=== PATIENT | male | born 1995 | race Caucasian/White ===

== ENCOUNTER 2022-04-07 19:42 | Emergency (ER) | payer OTHER ==
[2022-04-07] MEDS ORDERED: Lidocaine 1% MPF 2 ML VIAL ONE (21:11)
[2022-04-07] MEDS ORDERED: Boostrix 0.5 ML (Tdap) VIAL (>/=7 yrs of age) ONE (21:29)
[2022-04-07] MEDS ORDERED: Bacitracin 1 PK ONE (21:35)
== END 2022-04-07 20:18 | disposition home or self-care (01) ==
LOC: ERS 19:42 → EDBD 19:42 → ERS 20:18
DX: S61.210A Laceration without foreign body of right index finger without damage to nail, initial encounter (principal); W26.8XXA Contact with other sharp object(s), not elsewhere classified, initial encounter; Z23 Encounter for immunization
CPT/HCPCS: 12001; 90471; 90715